=== PATIENT | male | born 1985 | race Caucasian/White ===

== ENCOUNTER 2020-02-11 13:37 | Outpatient (REF) | payer OTHER, SELFPAY ==
[2020-02-13 15:33] LABS: Chlamydia Result Negative (Negative); GC Result Negative (Negative)
== END 2020-02-11 13:57 ==
LOC: LBO 13:37
PROVIDERS: PCP Family Medicine; Referring Provider Nurse Practitioner Adult Health; Visit Provider Nurse Practitioner Adult Health
DX: R36.9 Urethral discharge, unspecified (principal)
CPT/HCPCS: 87491; 87591

== ENCOUNTER 2020-02-23 00:19 | Outpatient (CLI) | payer OTHER, SELFPAY ==
--- NOTE | 2020-02-23 06:45 | DI.US_ITS ---
EXAM: US HERNIA CLINICAL HISTORY: Palpable hernia on PE in R groin (inguinal) w/ paiN,R10.31,RLQ PAIN. TECHNIQUE: Ultrasound was performed using standard protocol. COMPARISON: No exams were available for comparison FINDINGS: Sonographic assessment utilizing grayscale and color Doppler imaging was performed and targeted to th e area of clinical concern. There does appear to be a fat containing right inguinal hernia. The mouth of the hernia measures 1.5 cm. IMPRESSION: Fat containing right inguinal hernia. If further imaging is warranted, CT scan may be considered for further evaluation. DATA REPOSITORY:
== END 2020-02-23 00:39 ==
PROVIDERS: PCP Family Medicine; Visit Provider Nurse Practitioner Adult Health
DX: K40.90 Unilateral inguinal hernia, without obstruction or gangrene, not specified as recurrent (principal)
CPT/HCPCS: 76857

== ENCOUNTER → 2020-03-30 10:25 | Outpatient (BNVA) | payer OTHER, SELFPAY | PROVIDERS: PCP Family Medicine; Referring Provider Family Medicine; Visit Provider Surgery | DX: K40.90 Unilateral inguinal hernia, without obstruction or gangrene, not specified as recurrent (principal) | CPT/HCPCS: 99203; 99204 ==

== ENCOUNTER 2020-04-01 03:19 | Outpatient (CLI) | payer OTHER, SELFPAY ==
[2020-04-01 10:50] LABS: ALT 24 U/L (16-63); AST 11 U/L (15-37); Alkaline Phosphatase 75 U/L (46-116); Anion Gap 10.9 mmol/L (3-11); BUN 21 mg/dL (7-18); Bilirubin, Total 0.4 mg/dL (0.2-1.0); CO2 27.1 mmol/L (21.0-32.0); CREATININE 0.9 mg/dL (0.70-1.30); Calcium 9.1 mg/dL (8.5-10.1); Calculated LDL 104 mg/dL (<100); Chloride 102 mmol/L (98-107); Cholesterol 193 mg/dL (<200); Glucose 92 mg/dL (74-106); HDL Cholesterol 31 mg/dL (40-60); Potassium 4.2 mmol/L (3.5-5.1); Sodium 140 mmol/L (136-145); Total Protein 7.4 g/dL (6.4-8.2); Triglyceride 294 mg/dL (<150)
== END 2020-04-01 03:20 | disposition home or self-care (01) ==
LOC: LBO 03:19
PROVIDERS: PCP Family Medicine; Visit Provider Family Medicine
DX: E78.5 Hyperlipidemia, unspecified (principal); Z82.49 Family history of ischemic heart disease and other diseases of the circulatory system
CPT/HCPCS: 36415; 80053; 80061

== ENCOUNTER 2020-04-14 06:17 | Day surgery (SDC) | payer OTHER, MEDICAID, SELFPAY ==
[2020-04-14] VITALS (7 sets, daily range): BP systolic 87–131; BP diastolic 54–91; PULSE 66–80; RESP 13–20; TEMP 36–36.4; O2SAT 96–98
--- NOTE | 2020-04-14 06:38 | ROE_ITS ---
Date of service: 04/14/20 Time of Service: 08:41 Operative Note Operative Note DATE OF PROCEDURE: 04/14/20 PRE-OP DIAGNOSIS: Right inguinal hernia POST-OP DIAGNOSIS: other (Right direct and indirect inguinal hernia) PROCEDURE: Right inguinal hernia repair with mesh SURGEON: Connie Hough MAINTENANCE HELPER UTILITY ENGINEER: Leanne Bergeron ANESTHESIA TYPE: General LMA/ETT (ASA 2/Benito Mckeon CRNA) and Primary Nerve Block Refer to Anesthesia Record ESTIMATED BLOOD LOSS: 15 PATHOLOGY: none sent COMPLICATIONS: None Patient was transported to: PACU Patient's condition: stable Implants: BARD Mesh LOT: [id number] REF: [id number] EXP: 2024-10-02 Indications: Mr. Keen is a pleasant 34-year-old gentleman who has a small right inguinal hernia containing fat. He is having discomfort in the area on a daily basis. His past medical history significant for PTSD. We did discuss hernia repair with mesh. We used a pamphlet to go over the repair as well as the anatomy. We reviewed risks benefits and alternatives. We also reviewed Covid testing and need for quarantine between testing and his surgery day. I went over postoperative activity limitations. We also discussed ultrasound- guided nerve block by anesthesia to help with postoperative pain. Plan is for i buprofen Tylenol and ice for postoperative pain control. Risks, benefits and complications have been reviewed. Complications include but are not limited to bleeding, infection, injury to vas, vessels and nerves, injury to bowel and adverse reaction to medications. Questions were entertained and answered to their satisfaction and they wished to proceed. COVID-19 testing explained to the patient. Reason for test reviewed. Quarantine per state requirements reviewed with patient. Patient understands and agrees to testing. Proceed with right inguinal hernia repair with mesh Findings: Large direct hernia defect and small indirect hernia defect Procedure Description: After informed consent was obtained and the right groin was marked in SDS, the patient was taken to the operating room and placed in a supine position. Monitors and SCDs were applied and a timeout was done. The patient's name, date of , procedure type, procedure site, allergies to medications, preoperative antibiotic, and DVT prophylaxis were all reviewed. Fire risk was assessed. Next anesthesia did a tap block on the right side under ultrasound guidance. Please see their separate dictation. Once anesthesia was done the abdomen was prepped and draped in a sterile surgical fashion. 2% lidocaine was injected into the dermis in the right lower quadrant. An incision was made with a 10 blade in the right lower quadrant. Dissection was done with cautery through the subcutaneous tissues and Berkley's fascia down to the external oblique fascia. The external ring was identified and the external oblique fascia was opened sharply through the external ring. The cut fascia was grasped with hemostats the cord structures were identified and a Bucky drain was placed around them. The cremasteric muscle was dissected away from the cord structures using both cautery and blunt dissection. There was a cord lipoma which was removed. There was a large direct defect and a small indirect defect identified. A 6 x 6 piece of mesh was then cut in half. One half was cut in thirds and made into a plug. The plug was placed into the idirect defect and secureed with 2-0 proline. The second half was cut to size and attached to the lacunar ligament using a 2-0 Prolene double armed suture. The mesh was secured laterally and medially with a 2-0 Prolene, with a running suture. The tails of the mesh were wrapped around the cord structures effectively cinching down the internal ring. Once the mesh was secured the tissues were irrigated with some normal saline. No bleeding was identified. The external oblique fascia was re-approximated using 2-0 Vicryl running suture. The Berkley's fascia was re-approximated using interrupted 3-0 Vicryl. The dermis was re-approximated with a running 4-0 Vicryl. The skin was cleaned and dried and skin affix was applied. The patient was woken up and taken back to recovery in stable condition. There were no immediate complications. Sponge, instrument and needle counts were correct at the end of the case x2.
--- NOTE | 2020-04-14 06:40 | W.PM.DSUDISC ---
Discharge Plan Disposition Patient Disposition: HOME Condition: Good Discharge Details Reason For Visit: right inguinal hernia repair with mesh Attending Provider: Connie Hough Primary Care Provider: Ayush Napier Home Meds and New Rx's Prescriptions: Continued trazodone 150 mg tablet 150 mg PO DAILY RF: 0 melatonin 3 mg capsule 6 mg PO HS PRNRF: 0 albuterol 90 mcg/actuation aerosol 90 mcg inhalation Q4H PRN PRNRF: 0 oxcarbazepine 600 mg tablet 600 mg PO BID RF: 0 bupropion HCl 75 mg tablet 150 mg PO TID RF: 0 cetirizine 10 mg tablet,chewable 10 mg PO DAILY Qty: 90 RF: 3 ibuprofen 200 mg Tablet 400 mg PO Q6H PRNRF: 0 Discharge Instructions Instructions: Open Herniorrhaphy (DC) Additional Instructions: Activity at Home after surgery: 1. Make sure you walk outside at least 4 times per day 2. You should be able to climb a flight of stairs 3. No driving while in pain or taking pain medications 4. No strenuous activity or heavy lifting for 4 weeks (open surgery) Diet, Nutrition, & wound healin. Avoid alcohol until after you are recovered from your surgery 2. Make sure to eat plenty of lean protein (meat, fish, eggs, cottage cheese, beans) 3. Eat a variety of fruits and vegetables. Eat plenty of high fiber foods to avoid constipation. 4. Drink plenty of liquids to stay hydrated and avoid constipation Pain Medications: 1. Tylenol 650mg every 6 hours as needed and Ibuprofen 600 mg every 6 hours as needed. You may alternate between the 2 medications every 3 hours 2. If a narcotic has been prescribed take as directed only for breakthrough pain For Constipation: 1. Take Milk of Magnesia or MiraLax as needed for constipation Other: 1. You may shower daily. Do not scrub the incisions 2. Do not soak the incisions for 1 week 3. You may alternate ice and heat as needed for pain and swelling Wound Care: 1. Keep the incisions clean and dry Please call our office if you develop: 1. Fevers >101.5 2. Nausea or Vomiting 3. Worsening pain 4. Redness and thick discharge from the wounds If after hours please call the Hospital at and ask to speak to the on-call surgeon Referrals: Connie Hough MD [ [facility] STAFF PHYSICIAN] - Activity:: No lifting >20 lb x 4 weeks Diet:: As Tolerated Discharge Orders Discharge Orders: Discharge Order (Routine); Ordered 04/14/20 Ordered By: Connie Hough
[2020-04-14] MEDS: Acetaminophen 500 MG TAB 1000 MG PO (06:46)
[2020-04-14] MEDS: Celecoxib 200 MG CAP PO (06:47)
[2020-04-14] MEDS: Lactated Ringers 1,000 ML 80 ML IV (07:05)
[2020-04-14] MEDS: CLINDAMYCIN 600 MG/50 ML BAG 100 MG IVPB (07:27)
[2020-04-14] MEDS: Lidocaine 2% Multi-Dose 50 ML VIAL (07:41)
--- NOTE | 2020-04-14 19:42 | PDOC.CMPRO ---
- If Service Date Differs Date of service: 04/14/20 Time of Service: 19:42 Care Management Progress Note GEOVANY is asked to meet with Carlitos by day surgery nursing staff. Carlitos reports he is living in a [facility] residential home where he is unhappy and not getting his need mets. Carlitos states he [place] in [place] where there are too many flies, no cable, and spotty internet service. He is unhappy because the staff at the residential home open his mail and supervise his phone calls. He shares he was placed in the residential home on January 19, 2020, under Act 248 and feels it is unfair that he has restrictions and has to be supervised.
== END 2020-04-14 11:20 | disposition home or self-care (01) ==
PROVIDERS: PCP Family Medicine; Visit Provider Surgery
PROC: (CPT 49505; principal; 2020-04-14 07:30)
DX: K40.90 Unilateral inguinal hernia, without obstruction or gangrene, not specified as recurrent (principal); J45.909 Unspecified asthma, uncomplicated
CPT/HCPCS: 49505; 76942; C1781; J1100; J1885; J2250; J2405; J2704

== ENCOUNTER 2021-01-10 03:08 | Outpatient (CLI) | payer MEDICARE, OTHER, SELFPAY ==
[2021-01-12 11:28] LABS: HIV-1/2 Ag & Ab Screen Negative (Negative)
[2021-01-12 11:42] LABS: Hepatitis C Ab w Rflx HCV PCR Negative (Negative)
== END 2021-01-10 03:09 | disposition home or self-care (01) ==
LOC: LBO 03:08
PROVIDERS: PCP Family Medicine; Visit Provider Family Medicine
DX: Z11.59 Encounter for screening for other viral diseases (principal); Z11.4 Encounter for screening for human immunodeficiency virus [HIV]
CPT/HCPCS: 36415; 86803; 87389

== ENCOUNTER → 2021-06-30 14:54 | Outpatient (BNVA) | payer MEDICARE, OTHER, MEDICAID, SELFPAY | PROVIDERS: PCP Family Medicine; Referring Provider Family Medicine; Visit Provider Urology | DX: A63.0 Anogenital (venereal) warts (principal) | CPT/HCPCS: 99215 ==

== ENCOUNTER 2021-07-19 09:23 | Outpatient (REF) | payer MEDICARE, OTHER, MEDICAID, SELFPAY ==
[2021-07-19 09:37] LABS: Source Nasal/Nares
[2021-07-19 15:26] LABS: COVID-19 PCR Negative (Negative)
== END 2021-07-19 09:24 | disposition home or self-care (01) ==
LOC: LBN 09:23
PROVIDERS: PCP Family Medicine; Visit Provider Urology
DX: Z20.822 Contact with and (suspected) exposure to COVID-19 (principal); Z01.818 Encounter for other preprocedural examination
CPT/HCPCS: 87635; U0005

== ENCOUNTER 2021-07-21 05:57 | Day surgery (SDC) | payer MEDICARE, OTHER, MEDICAID, SELFPAY ==
[2021-07-21] VITALS (10 sets, daily range): BP systolic 97–125; BP diastolic 50–92; PULSE 57–76; RESP 13–19; TEMP 36.6–36.7; O2SAT 96–97; BMI 28.4
[2021-07-21] MEDS: Lactated Ringers 1,000 ML 80 ML IV (06:31)
--- NOTE | 2021-07-21 06:51 | HPE_ITS ---
Date of service: 07/21/21 Time of Service: 06:51 Assessment and Plan Assessment and plan (1) Genital warts: Status: Acute Assessment and plan: We will remove the visible lesions and biopsy at least one of them to confirm condyloma. As we had discussed in our office, as condyloma is due to a virus, removing the lesions is in no way curative as we are unable to identify or obliterate the virus particle. Recurrances are not unexpected and condoms should be used during sexual contact to prevent transmission of the virus. History of Present Illness History of Present Illness Chief Complaint: Penile Condyloma Narrative: This is a 35-year-old gentleman who is referred by the providers at [facility] internal medicine.? The patient has a history of penile lesions which have been described as being condyloma. The patient himself describes a lump on the penis that he noticed over the past year.? The lesion is at the base of the penis.? At times, it tends to be uncomfortable which she believes is from rubbing against his clothing.? He has used tweezers to grab the lesion and attempt to remove it.? When he does so, the lesion bleeds and tends to recur.? He was given a topical cream by his primary care provider.? He had no change in the skin lesions when he used the cream. The patient has a history of intellectual disability. He tells me that he would like to have at least one of the lesions biopsied so he knows exactly what it is.? He has had negative HIV, chlamydia and gonorrhea testing previously. Review of Systems Narrative: No fevers or chills Allergic rhinitis. No vision change or dysphasia No diabetes or thyroid Occasional SOB - uses inhaler prn. No cough or hemoptysis No chest pain or palpitations No nausea, vomiting, hepatitis, ulcers, jaundice No seizures, strokes or peripheral neuropathy No bleeding disorders or anemia No gout PFSH All Active Problems Inguinal hernia (Acute) RIGHT--U/S confirmed Family history of heart disease (Acute) Genital warts (Acute) Medical History Asthma Bloody discharge from penis Hematospermia History of ADHD History of depression History of incarceration Under 24/7 surveillance (mandatory); nonviolent History of intellectual disability Intellectual disability PTSD (post-traumatic stress disorder) after combat Per occasional caregiver, states nothing that she knows of is a trigger Seasonal allergies Surgical History S/P inguinal hernia repair using synthetic patch (~04/14/20) Right Family History Father Heart disease Hypertension Chronic post-traumatic stress disorder (PTSD) after combat Mother No problems noted. Maternal Grandfather Diabetes Paternal Grandmother Heart disease Paternal Grandfather Alcohol abuse Social History (Updated 09/13/20 @ 09:15 by Inessa Price LPN) Smoking/Tobacco Use Status: Never Smoking risk assessment performed?: Yes Alcohol Intake: former Drug use: Never Substance use type: does not use Household members: other Details: 2 Housing: other Details: residential home Number of Children: 5 number of grandchildren: 0 Communication Needs: Hard of Hearing Education Level: high school Details: completed 11 yrs Do you need help understanding health information?: Always current occupation: disabled Pets and animals: No Sexually active: No Do you think of yourself as: straight/heterosexual Current gender identity: male What type of physical activity do you participate in: walking Duration: 15-30 minutes/day Frequency: 3-4 times per week Shayy/Religious: Sabianism Seatbelt use: always Water heater temp set <120 deg: Yes Working smoke detector in home: Yes Fire extinguisher in home: Yes Carbon monox detector in home: Yes Do you feel safe at home: Yes Do you feel safe in your relationship?: Yes Additional Social history: All pre-op assessment was done with pt's CM. Meds Allergies and Home Medications Allergies Allergy/AdvReac Type Severity Reaction Status Date / Time oxycodone Allergy Unknown throat Verified 07/21/21 06:15 swelling Penicillins Allergy Unknown pt reports Verified 07/21/21 06:15 throat swelling Home Medications Medication Instructions Recorded Confirmed Type albuterol 90 mcg/actuation aerosol 90 mcg inhalation Q4H PRN PRN 02/11/20 07/21/21 History inhaler bupropion HCl 75 mg tablet 150 mg PO TID 02/11/20 07/21/21 History melatonin 3 mg capsule 6 mg PO HS PRN 02/11/20 07/21/21 History oxcarbazepine 600 mg tablet 600 mg PO BID 02/11/20 07/21/21 History trazodone 150 mg tablet 150 mg PO DAILY 02/11/20 07/21/21 History ibuprofen 200 mg tablet 400 mg PO Q6H PRN 04/14/20 07/21/21 History cetirizine 10 mg chewable tablet 10 mg PO DAILY #90 tabs 03/08/21 07/21/21 Rx Exam Const General: cooperative and comfortable Neck Neck: supple Resp Effort & Inspection: normal respiratory effort Auscultation: clear to auscultation bilaterally Cardio Rate: regular rate Rhythm: regular rhythm GI Palpation: soft Other: There are multiple raised flesh-colored lesions on the dorsum of the penis.? Grossly, they have the typical appearance of condyloma.? The largest of the lesions measures less than 5 mm.? It? is raised with a narrow base.? There is no surrounding erythema. Neuro General: patient alert and patient awake Results Last Vital Signs Temp 36.7 C 07/21/21 06:18 Pulse 57 L 07/21/21 06:18 Resp 19 07/21/21 06:18 BP 118/92 H 07/21/21 06:18 Pulse Ox 96 07/21/21 06:18
--- NOTE | 2021-07-21 07:00 | W.ANESPRE ---
General Info Date of Service Date Performed: 07/21/21 Height: 6 ft 8 in Weight: 117.5 kg Body Mass Index (BMI): 28.4 Surgical Procedure: Operation Date: 07/21/21 07:40 Proposed Procedure Side Surgeon p Excise and Cauterize Condyloma Enrique Solorzano MD Meds Allergies and Home Medications Allergies Allergy/AdvReac Type Severity Reaction Status Date / Time oxycodone Allergy Unknown throat Verified 07/21/21 06:15 swelling Penicillins Allergy Unknown pt reports Verified 07/21/21 06:15 throat swelling Home Medication Medication Instructions Recorded albuterol 90 mcg/actuation aerosol 90 mcg inhalation Q4H PRN PRN 02/11/20 inhaler bupropion HCl 75 mg tablet 150 mg PO TID 02/11/20 melatonin 3 mg capsule 6 mg PO HS PRN 02/11/20 oxcarbazepine 600 mg tablet 600 mg PO BID 02/11/20 trazodone 150 mg tablet 150 mg PO DAILY 02/11/20 ibuprofen 200 mg tablet 400 mg PO Q6H PRN 04/14/20 cetirizine 10 mg chewable tablet 10 mg PO DAILY #90 tabs 03/08/21 Current Visit Medications: Current Medications Generic Name Dose Route Start Last Admin Trade Name Freq PRN Reason Stop Dose Admin Ringer's Solution 1,000 mls @ 80 mls/hr 07/21/21 06:00 07/21/21 06:31 IV 08/19/21 23:59 80 mls/hr INFUSION EMILY Administration IV Miscellaneous Supplies 1 each 07/21/21 06:00 Iv Access IV 08/19/21 23:59 DIRECTED EMILY Sodium Chloride 0 ml 07/21/21 06:00 Normal Saline Flush 10 Ml Syr IV 08/19/21 23:59 PRN PRN Sodium Chloride 0 ml 07/21/21 06:00 Normal Saline 10 Ml Vial IJ 08/19/21 23:59 DIRECTED PRN Sterile Water 0 ml 07/21/21 06:00 Water,Injection,Sterile 10 Ml Vial IJ 08/19/21 23:59 DIRECTED PRN PFSH Active Problems Active Problems: Problem Status Onset Code Inguinal hernia K40.90 Family history of heart disease Z82.49 Genital warts A63.0 Medical History Medical History Asthma Bloody discharge from penis Hematospermia History of ADHD History of depression History of incarceration Under 28/08 surveillance (mandatory); nonviolent History of intellectual disability Intellectual disability PTSD (post-traumatic stress disorder) after combat Per neurocritical care physician, states nothing that she knows of is a trigger Seasonal allergies Surgical History Surgical History S/P inguinal hernia repair using synthetic patch (~04/14/20) Right Tobacco Smoking/Tobacco Use Status: Never Alcohol Alcohol Intake: former Substance Use Substance use: Never Substance use type: does not use Vital Signs and Lab Results Vital Signs Most Recent Vital Signs in EMR: Most Recent Vital Signs Temp Pulse Resp BP Pulse Ox 36.7 C 57 L 19 118/92 H 96 07/21/21 06:18 07/21/21 06:18 07/21/21 06:18 07/21/21 06:18 07/21/21 06:18 Lab Results Blood Type / Crossmatch: No Data to Display Complete Blood Count: No Data to Display Complete Metabolic Panel: No Data to Display Liver Function Panel: No Data to Display Coagulation Panel: No Data to Display Cardiac Panel: No Data to Display Arterial Blood Gas: No Data to Display Venous Blood Gas: No Data to Display Pancreas Panel: No Data to Display Thyroid Panel: No Data to Display Infectious Disease: Coronavirus (COVID-19)(PCR) Negative (Negative) 07/19/21 08:10 Coronavirus 2019 Source Nasal/Nares 07/19/21 08:10 Blood Cultures: No Data to Display Toxicology Panel: No Data to Display Anesthesia Assessment and Plan Anesthesia History Personal History: No History of Anesthesia Complications Family History: No Family History of Anesthesia Complications Exercise Tolerance Exercise Tolerance: Metabolic Equivalents>4 Pertinent Negatives Pertinent Negatives: No Symptoms of GERD, No Major Cardiovascular Symptoms or Complaints, No Major Pulmonary Symptoms or Complaints and No History of CVA/TIA Cardiac & Pulmonary Exam Cardiac Exam: Normal S1/S2 Heart Sounds Pulmonary Exam: Clear Bilateral Breath Sounds Implantable Cardiac Device Does patient have a Pacemaker or an ICD?: No Airway Exam Known Difficult Airway: No Mallampati Class: 1 Mouth Opening: Normal (> 3cm) Thyromental Distance: Greater than 3 cm Neck Range of Motion: Full ROM Neck Circumference: Normal Teeth Condition: Edentulous ASA Classification ASA Score: ASA 2 Emergency Case?: No NPO Status NPO Status: NPO Clears >2 hours, Solids >8 hours Anesthesia Plan Resuscitation Status: Full Code Anesthesia Technique: General Anesthesia Airway Planned: LMA Monitors Used: Standard Monitors
[2021-07-21] MEDS: Lidocaine 1% Pres-Free 30 ML VIAL (07:50)
--- NOTE | 2021-07-21 07:50 | SKI_PTH ---
PATIENT: Scar Keen JR LOC: [facility] U#:[id number] AGE/SX: 35/M ROOM: RE07/21/[address]: Enrique Solorzano MD : [id number] BED: DIS: 07/21/2021 SPEC #: [id number] RECD: 07/21/21 11:59 STATUS: SARIKA REQ #: [id number] GUCCI: 07/21/21 07:[address]: Enrique Solorzano DEPT: Surgical Specimen RECD BY: Stephani Slade ENTERED: 07/21/21 12:02 SP TYPE: VANESSA BROTHERS DR: Ayush Napier DO Tissues: 1 - SKIN BIOPSY(SHAVE/PUNCH) Procedures: SKIN LEVEL 4 Comments: [id number]
[2021-07-21] MEDS: Bacitracin 1 PACKET (07:59)
--- NOTE | 2021-07-21 08:09 | W.PM.DSUDISC ---
Discharge Plan Disposition Patient Disposition: HOME Condition: Stable Discharge Details Reason For Visit: penile lesions Attending Provider: Enrique Solorzano Primary Care Provider: Ayush Napier Home Meds and New Rx's Prescriptions: No Action trazodone 150 mg tablet 150 mg PO DAILY melatonin 3 mg capsule 6 mg PO HS PRN albuterol 90 mcg/actuation aerosol 90 mcg inhalation Q4H PRN PRN oxcarbazepine 600 mg tablet 600 mg PO BID bupropion HCl 75 mg tablet 150 mg PO TID cetirizine 10 mg tablet,chewable 10 mg PO DAILY Qty: 90 3RF ibuprofen 200 mg Tablet 400 mg PO Q6H PRN Discharge Instructions Additional Instructions: may use tylenol or ibuprofen for any discomfort followup 2 weeks for pathology results Activity:: no sexual contact until seen in followup Remove Dressings/Wound Care:: 24 hours Shower/Bathe:: 24 hours Diet:: As Tolerated Discharge Orders Discharge Orders: Discharge Order (Routine); Ordered 07/21/21 Ordered By: Enrique Solorzano DS: Diagnosis Discharge Diagnosis (1) Genital warts: Start date: 07/21/21 Start time: 08:09 Status: Acute
--- NOTE | 2021-07-21 08:16 | W.PM.OP ---
Date of service: 07/21/21 Time of Service: 08:16 Operative Note Operative Note DATE OF PROCEDURE: 07/21/21 PRE-OP DIAGNOSIS: Penile condyloma POST-OP DIAGNOSIS: same PROCEDURE: Excision and fulguration of penile lesions SURGEON: Enrique Solorzano ANESTHESIA TYPE: Local By Surgeon and General LMA/ETT Refer to Anesthesia Record ESTIMATED BLOOD LOSS: 5 PATHOLOGY: other (penile lesions) COMPLICATIONS: None Patient was transported to: PACU Patient's condition: stable Implants: None Indications: This is a 35-year-old gentleman who has a history of penile lesions. Clinically, they have the appearance of condyloma. He has been treated by his primary care provider with a topical ointment, but the lesions persist. He is interested in having the lesions biopsied and removed Findings: Multiple penile lesions consistent with penile condyloma Procedure Description: It was brought to the operating room on 07/21/2021. After successful induction of general anesthesia, he was placed in the supine position. His genitalia was prepped and draped. A dorsal penile nerve block was performed with 1% lidocaine. The penile skin underlying the visible lesions was infiltrated with lidocaine as well. A total of 12 papillary lesions were identified. These lesions were treated with excisional biopsy. The biopsies were sent to pathology for permanent section. The biopsy sites were then cauterized with bipolar cautery. The unbiopsied lesions were likewise fulgurated with the bipolar cautery. At the completion of the procedure, no visible lesions were remaining. We then applied Neosporin ointment and a gauze wrap to the base of the penis. The patient tolerated the procedure with no complications.
[2021-07-21] MEDS: fentaNYL 100 MCG/2 ML VIAL IVP (09:10)
--- NOTE | 2021-07-21 10:11 | W.ANESPOSTOP ---
Postoperative Evaluation Date, Time and Location Date Performed: 07/21/21 Time Performed: 10:11 Patient Location: Day Surgery Unit Vital Signs Most Recent Imported Vital Signs: Most Recent Vital Signs Temp Pulse Resp BP Pulse Ox 36.6 C 65 18 125/85 97 07/21/21 09:55 07/21/21 09:55 07/21/21 09:55 07/21/21 09:55 07/21/21 09:55 Pain Score Most Recent Pain Score: Most Recent Pain Score Pain Level 0 07/21/21 09:55 Assessment Mental Status: Awake (Alert & Oriented to Patient Baseline) Airway and Respiratory Function: Patent airway with normal (patient baseline) respiratory exam Cardiovascular Function: Hemodynamically Stable Hydration Status: Adequately Hydrated Nausea & Vomiting: No Nausea or Vomiting Pain: Pain is tolerable per patient Peripheral Nerve Block: Patient did not receive a nerve block
== END 2021-07-21 10:27 | disposition home or self-care (01) ==
PROVIDERS: PCP Family Medicine; Visit Provider Urology
PROC: (CPT 54065; principal; 2021-07-21 07:30)
DX: A63.0 Anogenital (venereal) warts (principal); F79 Unspecified intellectual disabilities; J45.909 Unspecified asthma, uncomplicated; F43.10 Post-traumatic stress disorder, unspecified; L82.0 Inflamed seborrheic keratosis
CPT/HCPCS: 54065; 88305; J1100; J1885; J2250; J2405; J3010

== ENCOUNTER → 2021-08-12 10:46 | Outpatient (BNVA) | payer MEDICARE, OTHER, MEDICAID, SELFPAY | PROVIDERS: PCP Family Medicine; Referring Provider Family Medicine; Visit Provider Urology | DX: L82.0 Inflamed seborrheic keratosis (principal) ==

== ENCOUNTER 2022-03-06 02:52 | Outpatient (CLI) | payer MEDICARE, OTHER, MEDICAID, SELFPAY ==
[2022-03-06 09:19] LABS: Cholesterol 183 mg/dL (<200); HDL Cholesterol 28 mg/dL (40-60); Triglyceride 413 mg/dL (<150)
[2022-03-06 09:33] LABS: LDL CHOLESTEROL 87 mg/dL (<100)
== END 2022-03-06 02:53 | disposition home or self-care (01) ==
LOC: LBO 02:52
PROVIDERS: PCP Family Medicine; Visit Provider Family Medicine
DX: E78.5 Hyperlipidemia, unspecified (principal)
CPT/HCPCS: 36415; 80061; 83721

== ENCOUNTER 2024-10-02 04:17 | Outpatient (CLI) | payer MEDICARE, OTHER, MEDICAID, SELFPAY ==
[2024-10-02 13:46] LABS: ALT 25 U/L (16-63); AST 12 U/L (15-37); Albumin 4.1 g/dL (3.4-5.0); Alkaline Phosphatase 82 U/L (46-116); Anion Gap 5.3 mmol/L (3-11); BUN 15 mg/dL (7-18); Bilirubin, Total 0.5 mg/dL (0.2-1.0); CO2 28.7 mmol/L (21.0-32.0); Calcium 9.2 mg/dL (8.5-10.1); Chloride 103 mmol/L (98-107); Estimated GFR 97.58 (mL/min/1.73m2); Glucose 98 mg/dL (74-106); Potassium 4.1 mmol/L (3.5-5.1); Sodium 137 mmol/L (136-145); Total Protein 7.5 g/dL (6.4-8.2); Triglyceride 259 mg/dL (<150)
[2024-10-02 15:37] LABS: Calculated LDL 104 mg/dL (<100); Cholesterol 185 mg/dL (<200); HDL Cholesterol 30 mg/dL (>or=40)
== END 2024-10-02 04:18 | disposition home or self-care (01) ==
LOC: LBO 04:18
PROVIDERS: PCP Family Medicine; Referring Provider Family Medicine; Visit Provider Family Medicine
DX: E78.5 Hyperlipidemia, unspecified (principal)
CPT/HCPCS: 36415; 80053; 80061